=== PATIENT | female | born 1970 | race Two or more races ===

== ENCOUNTER 2022-10-04 11:50 | Emergency (ER) | payer OTHER ==
[~2022-10-04] VITALS: Ht 167.6 cm; Wt 98.4 kg
[~2022-10-04 11:50] MED LIST: HYZAAR 100-251 UDTAB
[2022-10-04] MEDS ORDERED: XARELTO15 MG PO (19:00)
== END 2022-10-04 14:18 | disposition home or self-care (01) ==
LOC: ER 11:50
DX: M79.89 Other specified soft tissue disorders (principal); M25.561 Pain in right knee; Z88.8 Allergy status to other drugs, medicaments and biological substances; M17.11 Unilateral primary osteoarthritis, right knee; R07.9 Chest pain, unspecified

== ENCOUNTER 2022-10-05 08:33 | Emergency (ER) | payer OTHER ==
[~2022-10-05] VITALS: Ht 165.1 cm; Wt 98.4 kg
[~2022-10-05 08:33] MED LIST changes: +XARELTO15 MG PO
== END 2022-10-05 14:16 | disposition home or self-care (01) ==
LOC: ER 08:33
DX: M79.604 Pain in right leg (principal); I87.2 Venous insufficiency (chronic) (peripheral); I83.93 Asymptomatic varicose veins of bilateral lower extremities; Z88.8 Allergy status to other drugs, medicaments and biological substances

== ENCOUNTER 2023-03-13 11:35 | Emergency (ER) | payer OTHER ==
[~2023-03-13] VITALS: Ht 165.1 cm; Wt 95.3 kg
[2023-03-13] MEDS ORDERED: KETO10TA2 PO (11:51)
[2023-03-13 15:29] LABS: HEMATOCRIT 43.1 % (36.0-45.00); HEMOGLOBIN 14.2 g/dL (12.0-15.00); MEAN CELL VOLUME 85.7 fL (80.00-100.00); MEAN CORPUSCULAR HEMOGLOBIN 28.1 pg (27.00-32.0); MEAN CORPUSCULAR HGB CONC 32.8 g/dl (32.0-36.0); PLATELET COUNT 191 K/uL (150-450); RED BLOOD COUNT 5.03 M/uL (4.00-6.00); RED CELL DISTRIBUTION WIDTH 15.2 % (11.5-14.5)
[2023-03-13 15:46] LABS: CALCIUM 9.7 mg/dL (8.5-10.1); CREATININE SERUM 0.66 mg/dL (0.55-1.02); GFR 94.42; POTASSIUM 4.07 mEq/L (3.5-5.1)
[2023-03-13 16:16] LABS: PH,URINE 7.5 (5.0-8.0); URINE APPEARANCE Clear; URINE BILIRRUBIN Negative (NEGATIVE); URINE BLOOD Small; URINE COLOR Yellow; URINE GLUCOSE Negative (NEGATIVE); URINE LEUKOCYTE Negative; URINE NITRATE Negative; URINE PROTEIN Negative (NEGATIVE); URINE UROBILINOGEN 0.2 E.U./dl
[2023-03-13 16:20] LABS: URINE EPITHELIAL CELLS 9.8 uL (0.0-38.8); URINE WBC 6.5 uL (0.0-23.2)
== END 2023-03-13 17:20 | disposition home or self-care (01) ==
LOC: ER 11:35
PROVIDERS: General Practice
DX: R10.9 Unspecified abdominal pain (principal); N20.0 Calculus of kidney